=== PATIENT | male | born 1965 | race African-American/Black ===

== ENCOUNTER 2016-10-26 14:00 | Inpatient (IN) | payer OTHER ==
[~2016-10-26] VITALS: Ht 182.9 cm; Wt 117.9 kg
--- NOTE | ~2016-10-26 | HP ---
Unit #: [id number] #: [id number] Patient: CHARLES DENNY [id number] [place] [address] [id number] I MR#: [id number] NAME: CHARLES DENNY. ROOM: P173 Age: 50 Sex: M Admission Date: 10/26/2016 : 1965 Attending Physician: Jim Dhaliwal M.D. Admitting Physician: Jim Dhaliwal M.D. Primary Care Physician: Primary Care Physician No HISTORY AND PHYSICAL HISTORY OF PRESENT ILLNESS Anupam is a 50 year old admitted to [facility] because of his abuse of alcohol. PAST MEDICAL HISTORY 1. Long history of alcohol abuse. 2. History of diverticulitis. a. Colon resection. PAST SURGICAL HISTORY 1. As above. 2. Appendectomy. 3. Inguinal hernia repair x2. ALLERGIES Iodine. SOCIAL HISTORY Smokes one pack per day. Drinks at least two fifths of liquor on a daily basis. Denies illicit drug use. FAMILY HISTORY Medically noncontributory. REVIEW OF SYSTEMS CONSTITUTIONAL: No fever or chills. HEENT: Denies any sore throat, ear pain or runny nose. CARDIOVASCULAR: Denies chest pain, irregular heart rhythm or palpitations. CHEST: Denies shortness of breath or cough. No hemoptysis. GASTROINTESTINAL: Denies nausea, vomiting, diarrhea or chronic constipation. ENDOCRINE: Denies history of increased thirst or urination. No recent significant weight loss or gain. GENITOURINARY: Denies dysuria, frequency, or hematuria. SKIN: Denies any rashes. HEMATOLOGIC: Denies history of increased bleeding or bruising. MUSCULOSKELETAL: Denies any hot, swollen joints. No generalized muscle pain. NEUROLOGIC: Denies problems with vision or speech. No frequent, severe headaches. No numbness, tingling or weakness in any extremities. Denies loss of bladder or bowel control. CURRENT MEDICATIONS Unit #: [id number] #: [id number] Patient: CHARLES DENNY 1. Detox protocol 2. Remeron 15 mg q.h.s. PHYSICAL EXAMINATION GENERAL: Alert, well-nourished, in no apparent distress. VITAL SIGNS: Blood pressure 122/77, heart rate 80, respirations 16, temperature 98.6. WEIGHT: 260 pounds. HEIGHT: 6'0". SKIN: Warm and dry without rash or lesion. HEENT: Normocephalic. TMs not viewed. Oral and nasal passages clear. Conjunctivae clear. Pupils equal, round and reactive to light and accommodation. Extraocular movements intact. NECK: Supple without lymphadenopathy or thyromegaly. HEART: Regular rate and rhythm without murmur. LUNGS: Clear. ABDOMEN: Soft, nontender. : Not done. EXTREMITIES: No evidence of cyanosis, clubbing or edema. Moves all extremities without focal deficit. NEUROLOGICAL: Grossly within normal limits. Cranial Nerves: II: Visual harmon are intact. III, IV AND : Extraocular movements are intact. Pupils are equal, round and reactive to light. V: Facial sensation is grossly normal. VII: Facial movements and expression are normal. VIII: Auditory acuity grossly intact. IX, X: Uvula is midline. Phonation is normal. XI: Patient shrugs shoulders and turns head normally. XII: Tongue protrudes in the midline. Sensory and Motor Function: Sensory and motor sensation is grossly normal. Motor: moves all extremities well. Coordination: Gait is normal. Deep Tendon Reflexes: Intact. IMPRESSION Psychiatric admission RECOMMENDATIONS PSYCHIATRIC: Per psychiatrist. MEDICAL: I see no contraindications to participating in facility's activities. MEDICAL PROGNOSIS Good. MEDICAL CONDITION Stable. Dictated by... Olivia De Guzman PPanchoAPancho-Kiera. for Dora Terrell/reji TD: 10/28/2016 04:24 Unit #: [id number] #: [id number] Patient: CHARLES DENNY JOB #: [id number] HISTORY AND PHYSICAL Page 1 of 1 X Olivia De Guzman X HISTORY AND PHYSICAL
--- NOTE | ~2016-10-26 | PN ---
Unit #: [id number] #: [id number] Patient: CHARLES DENNY [id number] [facility] [address] [place] [address] [id number] I MR#: [id number] NAME: CHARLES DENNY ROOM: 73 Age: 50 Sex: M Admission Date: 10/26/2016 : 1965 Attending Physician: Jim Dhaliwal M.D. Admitting Physician: Jim Dhaliwal M.D. Primary Care Physician: Primary Care Physician Melvi BOURNE PROGRESS NOTES DATE 10/30/2016 DISCUSSION The patient's detox continues uneventfully and is active within the therapeutic milieu. Should she sustain progress, discharge will likely take place tomorrow. Dictated by... Jim Dhaliwal M.D. CB/nehemiah TD: 10/30/2016 20:58 JOB #: [id number] [facility] PROGRESS NOTES Page 1 of 1 X Jim Dhaliwal MD X PROGRESS NOTE
--- NOTE | ~2016-10-26 | PN ---
Unit #: [id number] #: [id number] Patient: CHARLES DENNY [id number] [facility] [address] [place] [address] [id number] I MR#: [id number] NAME: CHARLES DENNY. ROOM: P173 Age: 50 Sex: M Admission Date: 10/26/2016 : 1965 Attending Physician: Jim Dhaliwal M.D. Admitting Physician: Jim Dhaliwal M.D. Primary Care Physician: Primary Care Physician Melvi BOURNE PROGRESS NOTES DATE 10/29/2016 DISCUSSION The patient is complaining of some GI discomfort today but is otherwise less than cooperative. He is expressing interest in treatment at "[facility]" upon discharge from this facility and it is our hope that referral will be a successful one. Dictated by... Jim Dhaliwal M.D. CB/nehemiah TD: 10/29/2016 15:53 JOB #: [id number] [facility] PROGRESS NOTES Page 1 of 1 X Jim Dhaliwal MD PROGRESS NOTE
--- NOTE | ~2016-10-26 | CO ---
Unit #: [id number] #: [id number] Patient: CHARLES DENNY [id number] [place] [address] [id number] I MR#: [id number] NAME: CHARLES DENNY. ROOM: 73 Age: 50 Sex: M Admission Date: 10/26/2016 : 1965 Attending Physician: Jim Dhaliwal M.D. Primary Care Physician: Primary Care Physician No Consultation Date: 10/27/2016 CONSULTATION REPORT MADISYN Bo is a 50-year-old admitted to [facility] because of his abuse of alcohol. At time of admission, he gave no history of high blood pressure. We have been asked to see him for increased pressures. The patient was seen for his admission H and P on 10/27/2016. Pressures at that time were 122/77, 120/80, 142/90 with heart rates of 104, 77, 65. We will continue to monitor his blood pressure through his detox. It appears that he has minimal problem with his blood pressure during detox. Two days into his detox, his blood pressures were normal at 120/80. We will continue to monitor. Dictated by... Olivia De Guzman P.A.-C. for Dora Terrell/kika TD: 10/29/2016 03:30 JOB #: [id number] CONSULTATION REPORT Page 1 of 1 X Olivia De Guzman CONSULTATION REPORT
--- NOTE | ~2016-10-26 | DS ---
Unit #: [id number] #: [id number] Patient: CHARLES DENNY [id number] [facility] [address] [place] [address] [id number] I MR#: [id number] NAME: CHARLES DENNY. ROOM: P173 Age: 50 Sex: M Admission Date: 10/26/2016 : 1965 Discharge Date: 10/31/2016 Attending Physician: Jim Dhaliwal M.D. Primary Care Physician: Primary Care Physician No DISCHARGE SUMMARY REASON FOR ADMISSION The patient is a 50-year-old, , male, admitted for alcohol detox. HOSPITAL COURSE The patient was admitted to the [facility] unit and placed on suicide precautions. Because of his complaints of depressed mood, Remeron 15 mg at h.s. was initiated. The patient was pleasant and cooperative throughout his stay in the hospital and by 10/31/2016, his detox was complete. He was in agreement with plan for followup in the intensive outpatient program provided by this facility. Discharge was ordered. FINAL DIAGNOSES Alcohol use disorder and dysthymic disorder. DISPOSITION ON DISCHARGE The patient is discharged on the following medications: Remeron 15 mg at bedtime for depression. DISCHARGE INSTRUCTIONS No dietary or physical restrictions were placed upon the patient at the time of discharge. FOLLOWUP Followup will take place through the auspices of community mental health resources. PROGNOSIS The patient's prognosis is considered good. Dictated by... Jim Dhaliwal M.D. CB/kika TD: 10/31/2016 23:14 JOB #: [id number] Unit #: [id number] #: [id number] Patient: CHARLES DENNY DISCHARGE SUMMARY Page 1 of 1 X Jim Dhaliwal MD X DISCHARGE SUMMARY
--- NOTE | ~2016-10-26 | PA ---
Unit #: [id number] #: [id number] Patient: CHARLES DENNY [id number] [place] [address] [id number] I MR#: [id number] NAME: CHARLES DENNY. ROOM: P173 Age: 50 Sex: M Admission Date: 10/26/2016 : 1965 Date of Assessment: 10/27/2016 Attending Physician: Jim Dhaliwal M.D. Admitting Physician: Jim Dhaliwal M.D. Primary Care Physician: Primary Care Physician No PSYCHIATRIC ASSESSMENT IDENTIFYING INFORMATION The patient is a 50-year-old male admitted to the [address] [place] [address] for alcohol detox. CHIEF COMPLAINT Alcohol INFORMANT The patient, patient's reliability is fair. HISTORY OF PRESENT ILLNESS The patient is a 50-year-old male admitted to the [address] [place] [address] with a history of increasing alcohol use. The patient reports that he is drinking up to two fifths of hard liquor on a daily basis because of this he is unemployed and reports significant issues with his who also has a history of alcohol dependence and has been treated at this facility. The patient was reporting vague suicidal ideation at the time of admission, depressed mood and poor sleep as well as anxiety. The patient denies prior psychiatric treatment apart from two stays at [facility]. He has maintained sobriety for as long as four months in the past. He denies abuse of other (:40) PAST PSYCHIATRIC HISTORY As above. PAST MEDICAL HISTORY Noncontributory. MEDICATIONS None. ALLERGIES Iodine. FAMILY HISTORY Noncontributory. SOCIAL HISTORY The patient lives with his . He is presently unemployed. He is a high school graduate. He reports substance use as noted previously and is a smoker. MENTAL STATUS EXAMINATION Unit #: [id number] #: [id number] Patient: CHARLES DENNY At this time reveals the patient to be a well-developed, well-nourished male appearing his stated age. He is in no apparent physical distress at the time of examination. He is awake, alert, and oriented in all spheres. His mood is mildly dysphoric. His affect congruent. Speech is generally relevant and coherent. There are no gross deficits in memory or cognition noted. Intelligence is judged to be in the average range based on fund of knowledge. The patient is cooperative throughout the interview. He is currently reporting vague suicidal ideation. He denies homicidal ideation. He denies any psychotic symptoms. His judgment and insight appear to be reasonably intact. ASSETS AND LIABILITIES ASSETS: Motivation for change. LIABILITIES: Lack of resources. ADMITTING DIAGNOSES 1. Alcohol use disorder. 2. Dysthymic disorder. TREATMENT PLAN The patient remains hospitalized for safety and stabilization. A routine detoxification protocol for alcohol has been initiated. Suicidal precautions are in place and we will begin a trial of mirtazapine 15 mg at h.s. to address the patient's depressive symptoms. ESTIMATED LENGTH OF STAY Three to five days with followup to take place in the intensive outpatient program provided by this facility. Dictated by... Jim Dhaliwal M.D. EWA/reji TD: 10/28/2016 03:35 JOB #: [id number] PSYCHIATRIC ASSESSMENT Page 1 of 1 X Jim Dhaliwal MD X PSYCHIATRIC ASSESSMENT
--- NOTE | ~2016-10-26 | PN ---
Unit #: [id number] #: [id number] Patient: CHARLES DENNY [id number] [facility] [address] [place] [address] [id number] I MR#: [id number] NAME: CHARLES DENNY ROOM: 73 Age: 50 Sex: M Admission Date: 10/26/2016 : 1965 Attending Physician: Jim Dhaliwal M.D. Admitting Physician: Jim Dhaliwal M.D. Primary Care Physician: Primary Care Physician Melvi BOURNE PROGRESS NOTES DATE 10/28/2016 DISCUSSION The patient remains active within the therapeutic milieu and is a bit brighter today. His detox continues uneventfully. We continue to do current treatment. Dictated by... Jim Dhaliwal M.D. CB/reji TD: 10/28/2016 21:40 JOB #: [id number] [facility] PROGRESS NOTES Page 1 of 1 X Jim Dhaliwal MD X PROGRESS NOTE
[~2016-10-26 14:00] MED LIST: ALBUTEROL17 GM INH; ALPRAZOLAM PO; HCTZ PO; KEFLEX PO; LORTAB 7.51 TAB 7.5/ PO; MEDROL PO; PRINIVIL10 MG PO; PRINIVIL20 M1 PO; ZITHROMAX PO
[2016-10-27 12:32] LABS: URINE APPEARANCE CLEAR; URINE BILIRUBIN NEG (NEG); URINE BLOOD NEG (NEG); URINE COLOR DK YELLOW; URINE GLUCOSE NEG (NEG); URINE KETONE NEG (NEG); URINE LEUKOCYTE ESTERASE NEG (NEG); URINE NITRATE NEG (NEG); URINE PH 5.5 (5-8); URINE PROTEIN NEG (NEG); URINE SPECIFIC GRAVITY 1.012 (1.003-1.035); URINE UROBILINOGEN 0.2 MG/DL (NEG)
[2016-10-27 12:45] LABS: AMPHETAMINE NEG (NEG); BARBITURATES NEG (NEG); BENZODIAZEPINES POS (NEG); COCAINE NEG (NEG); MARIJUANA NEG (NEG); OPIATES NEG (NEG); TRICYCLIC ANTIDEPRESSANTS NEG (NEG); U METHADONE NEG (NEG)
[2016-10-28 12:30] LABS: BASOPHIL% 0.7 % (0-2.5); EOSINOPHIL# 0.2 X10e3 (0-0.7); EOSINOPHIL% 3.4 % (0.0-7.0); HEMATOCRIT 41.1 % (38.0-50.0); HEMOGLOBIN 13.2 gm/dL (13.0-16.0); LYMPHOCYTE# 1.5 X10e3 (1.0-3.5); MEAN CELL VOLUME 90.7 FL (83-96); MEAN PLATELET VOLUME 9.6 FL (6.5-11.5); MONOCYTE# 0.7 X10e3 (0-1.0); MONOCYTE% 11.4 % (3.0-12.0); NEUTROPHIL# 3.9 X10e3 (1.5-7.1); NEUTROPHIL% 61.5 % (40-75); PLATELET COUNT 149 X10e3 (140-420); RED BLOOD COUNT 4.53 X10e (3.90-5.60); RED CELL DISTRIBUTION WIDTH 17.4 % (11.0-15.5); WHITE BLOOD COUNT 6.3 X10e3 (4.0-10.5)
[2016-10-28 12:34] LABS: DIFF IND NO
[2016-10-28 12:40] LABS: ALBUMIN SERUM 3.6 g/dL (3.5-5.0); BILIRUBIN,TOTAL 0.6 mg/dL (0.2-2.0); BUN/CREATININE RATIO 16.25; CALCIUM SERUM 8.9 mg/dL (8.4-10.2); CREATININE SERUM 0.8 mg/dL (0.6-1.4); GLOM FILT RATE Estimated 121.6 mL/min (>60); POTASSIUM 4.1 mmol/L (3.5-5.1); PROTEIN TOTAL SERUM 6.9 g/dL (6.0-8.3)
== END 2016-10-31 13:10 | disposition home or self-care (01) | DRG 897 ==
LOC: P1E 17:23
PROVIDERS: Specialist
PROC: HZ2ZZZZ Detoxification Services for Substance Abuse Treatment (ICD-10-PCS; principal; 2016-10-26)
DX: F10.20 Alcohol dependence, uncomplicated (principal); R45.851 Suicidal ideations; F34.1 Dysthymic disorder; F17.210 Nicotine dependence, cigarettes, uncomplicated
CPT/HCPCS: 80053; 80307; 81003; 85025; 86592